=== PATIENT | male | born 1990 | race Two or more races ===

== ENCOUNTER 2017-04-03 18:34 | Inpatient (IN) | payer MEDICAID ==
[~2017-04-03] VITALS: Ht 177.8 cm; Wt 75.1 kg
[2017-04-03] MEDS ORDERED: SODIUM CHLORIDE 0.9% 500 ML IV ONE (18:50)
[2017-04-03 19:21] LABS: CONDITION Y; DEFINITIVE SEE PRINTOUT; Hematocrit 53.7 % (41.0-53.0); Hemoglobin 17.8 g/dL (13.5-17.5); Mean Corpuscular Hemoglobin 28.6 pg (28.0-32.0); Mean Corpuscular Hgb Conc. 33.2 g/dL (32.0-36.0); Mean Platelet Volume 10.5 fL (7.4-10.4); Platelet Count (auto) 305 10^3/uL (140-450); Red Cell Distribution Width 14.8 % (11.6-16.0); SUSPECT SEE PRINTOUT; White Blood Cell 24.1 10^3/uL (4.4-10.8)
[2017-04-03 19:30] LABS: Metamyelocytes % 0; Myelocytes % 0; Promyelocytes % 0; Reactive Lymphocytes 0
[2017-04-03 19:44] LABS: Albumin 5.3 g/dL (3.4-5.0); BUN/Creatinine Ratio 5.1; Bilirubin, Total 1.9 mg/dL (0.2-1.0); Calcium 10.8 mg/dL (8.5-10.1); Potassium 3.5 mmol/L (3.5-5.1); Total Protein 9.8 g/dL (6.4-8.2)
[2017-04-03 19:51] LABS: Giant Platelets Few; Platelet Estimate Adequate
[2017-04-03] MEDS ORDERED: ONDANSETRON HCL 4 MG/2 ML VIAL IV ONE (20:15)
[2017-04-03] MEDS ORDERED: SODIUM CHLORIDE 0.9% 1,000 ML IV ONE (21:00)
[2017-04-03 21:11] LABS: Salicylate < 1.7 mg/dL (2.8-20.0)
[2017-04-03 21:27] LABS: Acetaminophen < 2.0 ug/mL (10-30)
[2017-04-03] MEDS ORDERED: PROMETHAZINE HCL 25 MG/ML 1ML IV ONE (22:15)
[2017-04-03] MEDS ORDERED: cefTRIAXone 1GM/50ML D5W 50 ML IV ONE (22:15)
[2017-04-03 23:06] LABS: Allen Test No; Blood 02Sat 80.8 % (96-100); MODE ROOM AIR; Sample Type Venous; Venous Blood COHb 0.7 % (0.5-1.5); Venous Blood Gas pH 7.467 (7.34-7.37); Venous Blood MetHb 0.4 % (0.0-1.5); Venous Blood O2Hb 79.9 % (94.0-97.0); Venous Blood PCO2 (T) 22.2 mmHg (44.0-46.0)
[2017-04-03 23:40] LABS: Lactic Acid w/Reflex 2.9 mmol/L (0.4-2.0)
[2017-04-03 23:45] LABS: REFLEX LACTIC ACID YES OR NO YES
[2017-04-04 00:03] LABS: Urine RBC None Seen /hpf (0 - 3)
[2017-04-04 00:18] LABS: Urine Bilirubin 1+ (Negative); Urine Blood TRACE /uL (Negative); Urine Color Yellow (Yellow); Urine Glucose TRACE mg/dL (Normal); Urine Hyaline Cast MANY /lpf (0 - 2); Urine Mucus MODERATE (None Seen); Urine Nitrite Negative (Negative); Urine pH 5.5 (5.0-8.0)
[2017-04-04 00:19] LABS: Urine Ketone 3+ (Negative)
[2017-04-04] MEDS ORDERED: TEMAZEPAM 15 MG CAP PO PRN (01:30)
[2017-04-04] MEDS ORDERED: NITROGLYCERIN 0.4 MG SL TAB SL PRN (01:30)
[2017-04-04] MEDS ORDERED: MORPHINE SULF INJ 2 MG/ML SYRINGE 1ML IV PRN ×2 (01:30)
[2017-04-04] MEDS ORDERED: CLINDAMYCIN 600MG IV 50 ML IV ONE (01:30)
[2017-04-04] MEDS ORDERED: HYDROcodone-ACET 5/325MG TAB PO PRN (01:30)
[2017-04-04] MEDS ORDERED: ONDANSETRON HCL 4 MG/2 ML VIAL IV PRN (01:30)
[2017-04-04] MEDS ORDERED: ACETAMINOPHEN 500 MG TAB PO PRN (01:30)
[2017-04-04] MEDS ORDERED: LORazepam 0.5 MG TAB PO PRN (01:30)
[2017-04-04] MEDS: SODIUM CHLORIDE 0.9% 1,000 ML IV SCH ×3 (05:40→17:34)
[2017-04-04] MEDS: CLINDAMYCIN 600MG IV 50 ML IV SCH ×3 (07:58→23:45)
[2017-04-04] MEDS: cefTRIAXone 1GM/50ML D5W 50 ML IV SCH (09:10)
[2017-04-04 17:00] VITALS: BP 147/80
[2017-04-04 17:31] LABS: Basophils # (auto) 0 uL; Basophils % (auto) 0.1 % (0.0-2.0); CONDITION Y; Eosinophils # (auto) 0 uL; Eosinophils % (auto) 0.2 % (0.0-7.0); Hematocrit 41.8 % (41.0-53.0); Hemoglobin 13.9 g/dL (13.5-17.5); Lymphocytes # (auto) 1.5 uL; Lymphocytes % (auto) 9.8 % (10.0-50.0); Mean Corpuscular Hgb Conc. 33.2 g/dL (32.0-36.0); Mean Corpuscular Volume 87.3 fL (80.0-100.0); Mean Platelet Volume 10.1 fL (7.4-10.4); Monocytes # (auto) 1.3 uL; Monocytes % (auto) 8.6 % (0.0-12.0); Neutrophils # (auto) 12.6 uL; Neutrophils % (auto) 81.3 % (37.0-80.0); Platelet Count (auto) 236 10^3/uL (140-450); Red Cell Distribution Width 15.2 % (11.6-16.0); SUSPECT SEE PRINTOUT; White Blood Cell 15.5 10^3/uL (4.4-10.8)
[2017-04-04 17:46] LABS: BUN/Creatinine Ratio 10.5; Calcium 8.1 mg/dL (8.5-10.1)
[2017-04-04 22:00] VITALS: BP 116/69
[2017-04-05] MEDS: SODIUM CHLORIDE 0.9% 1,000 ML IV SCH ×3 (01:51→17:15)
[2017-04-05 05:00] VITALS: BP 129/71
[2017-04-05 05:43] LABS: Basophils # (auto) 0 uL; Basophils % (auto) 0.2 % (0.0-2.0); CONDITION Y; Eosinophils # (auto) 0 uL; Eosinophils % (auto) 0.2 % (0.0-7.0); Hematocrit 39.3 % (41.0-53.0); Lymphocytes # (auto) 1.5 uL; Lymphocytes % (auto) 12.5 % (10.0-50.0); Mean Corpuscular Hgb Conc. 33.1 g/dL (32.0-36.0); Mean Corpuscular Volume 87.5 fL (80.0-100.0); Mean Platelet Volume 10.6 fL (7.4-10.4); Neutrophils # (auto) 9.1 uL; Neutrophils % (auto) 78.1 % (37.0-80.0); Platelet Count (auto) 198 10^3/uL (140-450); Red Cell Distribution Width 15.4 % (11.6-16.0); SUSPECT SEE PRINTOUT; White Blood Cell 11.6 10^3/uL (4.4-10.8)
[2017-04-05 06:29] LABS: Albumin 3.2 g/dL (3.4-5.0); BUN/Creatinine Ratio 10.7; Potassium 3.8 mmol/L (3.5-5.1)
[2017-04-05 06:32] LABS: Bilirubin, Total 0.5 mg/dL (0.2-1.0); Total Protein 6.3 g/dL (6.4-8.2)
[2017-04-05] MEDS: CLINDAMYCIN 600MG IV 50 ML IV SCH (06:50)
[2017-04-05 08:30] VITALS: BP 100/66
[2017-04-05] MEDS ORDERED: LEVO750T2 PO (09:41)
[2017-04-05] MEDS: cefTRIAXone 1GM/50ML D5W 50 ML IV SCH (10:18)
[2017-04-05 12:30] VITALS: BP 137/73
[2017-04-05] MEDS ORDERED: metroNIDAZOLE 500 MG TAB PO SCH (14:00)
[2017-04-05 17:38] VITALS: BP 130/77
== END 2017-04-05 18:05 | disposition home or self-care (01) | DRG 460 ==
LOC: EDBD 18:34 → EDUNIT# 18:34 → ER 18:38 → OVERFLOW 18:39 → WEST WING 04-04 15:36
PROVIDERS: ADMIT Internal Medicine; ATTEND Nurse Practitioner Acute Care
DX: N17.0 Acute kidney failure with tubular necrosis (principal); E87.2 Acidosis; K76.0 Fatty (change of) liver, not elsewhere classified; R65.10 Systemic inflammatory response syndrome (SIRS) of non-infectious origin without acute organ dysfunction; F20.81 Schizophreniform disorder; E86.0 Dehydration; T67.5XXA Heat exhaustion, unspecified, initial encounter; Z59.0 Homelessness; D72.829 Elevated white blood cell count, unspecified; F12.90 Cannabis use, unspecified, uncomplicated; S00.81XA Abrasion of other part of head, initial encounter; Z71.89 Other specified counseling; E83.52 Hypercalcemia; N18.9 Chronic kidney disease, unspecified
CPT/HCPCS: 36415; 36600; 71010; 74176; 80048; 80053; 80307; 80320; 80329; 81001; 82550; 82805; 83036; 83605; 83690; 85007; 85025; 85027; 87040; 96361; 96365; 96366; 96375; J0696; J2405; J3490

== ENCOUNTER 2018-03-12 11:03 | Emergency (ER) | payer MEDICAID ==
[~2018-03-12] VITALS: Ht 177.8 cm; Wt 63.5 kg
[~2018-03-12 11:03] MED LIST: LEVO750T2 PO
[2018-03-12 11:14] VITALS: BP 119/86
[2018-03-12 11:53] LABS: Basophils # (auto) 0 uL; Basophils % (auto) 0.7 % (0.0-2.0); Eosinophils # (auto) 0 uL; Eosinophils % (auto) 0.2 % (0.0-7.0); Hematocrit 49.4 % (41.0-53.0); Hemoglobin 16.7 g/dL (13.5-17.5); Lymphocytes # (auto) 0.9 uL; Lymphocytes % (auto) 15.7 % (10.0-50.0); Mean Corpuscular Hgb Conc. 33.8 g/dL (32.0-36.0); Mean Corpuscular Volume 85.8 fL (80.0-100.0); Monocytes # (auto) 0.5 uL; Monocytes % (auto) 7.7 % (0.0-12.0); Neutrophils # (auto) 4.5 uL; Neutrophils % (auto) 75.7 % (37.0-80.0); Nucleated Red Blood Cells % 0.1 %; Platelet Count (auto) 226 10^3/uL (140-450); Red Blood Cells 5.76 10^6/uL (4.5-5.90); Red Cell Distribution Width 13.7 % (11.8-14.3); White Blood Cell 5.9 10^3/uL (4.4-10.8)
[2018-03-12 12:16] LABS: Alanine Aminotransferase 17 U/L (16-61); Albumin 4.9 g/dL (3.4-5.0); Alkaline Phosphatase 72 U/L (45-117); Anion Gap 13 (5-15); Aspartate Aminotransferase 13 U/L (15-37); BUN/Creatinine Ratio 19.4; Bilirubin, Total 1.2 mg/dL (0.2-1.0); Blood Urea Nitrogen 24 mg/dL (7-18); Calcium 9.3 mg/dL (8.5-10.1); Carbon Dioxide 20 mmol/L (21-32); Chloride 99 mmol/L (98-107); GFR African American 91 mL/min; GFR Non-African American 75 mL/min; Glucose 88 mg/dL (74-106); Magnesium 2.8 mg/dL (1.6-2.6); Potassium 3.4 mmol/L (3.5-5.1); Sodium 132 mmol/L (136-145); Total Protein 8.8 g/dL (6.4-8.2)
== END 2018-03-12 13:13 | disposition left against medical advice (07) ==
LOC: EDBD 11:03 → ER 11:03
DX: R42 Dizziness and giddiness (principal); Z53.21 Procedure and treatment not carried out due to patient leaving prior to being seen by health care provider
CPT/HCPCS: 36415; 80053; 83735; 84484; 85025; 93005

== ENCOUNTER 2019-05-06 18:42 | Emergency (ER) | payer MEDICAID, OTHER ==
[~2019-05-06] VITALS: Ht 175.3 cm; Wt 68.0 kg
[2019-05-06] MEDS ORDERED: ONDANSETRON HCL 4 MG/2 ML VIAL IV ONE (19:30)
[2019-05-06] MEDS ORDERED: TETANUS-DIPTH-ACEL PERTUSSIS 0.5ML SYRG IM ONE (19:30)
[2019-05-06] MEDS ORDERED: MORPHINE SULFATE 4 MG/ML SYR/VIAL IV ONE (19:30)
[2019-05-06 19:38] LABS: Basophils # (auto) 0 uL; Basophils % (auto) 0.2 % (0.0-2.0); Eosinophils # (auto) 0 uL; Hematocrit 36.4 % (41.0-53.0); Lymphocytes # (auto) 0.5 uL; Lymphocytes % (auto) 3.5 % (10.0-50.0); Mean Corpuscular Hemoglobin 29.2 pg (28.0-32.0); Mean Corpuscular Volume 88.5 fL (80.0-100.0); Monocytes # (auto) 1.3 uL; Monocytes % (auto) 8.5 % (0.0-12.0); Neutrophils # (auto) 13.1 uL; Neutrophils % (auto) 87.8 % (37.0-80.0); Platelet Count (auto) 204 10^3/uL (140-450); Red Blood Cells 4.11 10^6/uL (4.5-5.90); Red Cell Distribution Width 14.8 % (11.8-14.3); White Blood Cell 14.9 10^3/uL (4.4-10.8)
[2019-05-06 20:27] LABS: Albumin 3.6 g/dL (3.4-5.0); Calcium 8.5 mg/dL (8.5-10.1); Potassium 3.6 mmol/L (3.5-5.1)
[2019-05-06 20:30] LABS: BUN/Creatinine Ratio 8.9; Bilirubin, Total 0.3 mg/dL (0.2-1.0); Total Protein 6.4 g/dL (6.4-8.2)
[2019-05-06 20:32] LABS: INR 1.04 (0.9-1.15); Partial Thromboplastin Time 21.6 sec (23.64-32.05)
[2019-05-06] MEDS ORDERED: cefTRIAXone 1GM/50ML D5W 50 ML IV ONE (22:45)
[2019-05-07] MEDS ORDERED: ETOMIDATE (2MG/ML) 20ML VIAL IV ONE
[2019-05-07 00:34] VITALS: BP 156/106
== END 2019-05-07 01:00 | disposition short-term general hospital (02) ==
LOC: ER 18:59
DX: S52.251A Displaced comminuted fracture of shaft of ulna, right arm, initial encounter for closed fracture (principal); S52.252A Displaced comminuted fracture of shaft of ulna, left arm, initial encounter for closed fracture; S53.005A Unspecified dislocation of left radial head, initial encounter; S01.01XA Laceration without foreign body of scalp, initial encounter; F12.10 Cannabis abuse, uncomplicated; R51 Headache; F15.10 Other stimulant abuse, uncomplicated; W22.8XXA Striking against or struck by other objects, initial encounter; Y93.89 Activity, other specified; Y92.89 Other specified places as the place of occurrence of the external cause; Y99.8 Other external cause status
CPT/HCPCS: 12002; 25565; 36415; 70450; 73070; 73110; 74176; 80053; 85025; 85610; 85730; 90471; 90715; 94761; 96365; 96375; 99285; J0696; J2270; J2405; J7030